=== PATIENT | female | born 1995 | race American Indian/Alaskan Native ===

== ENCOUNTER 2017-05-16 05:52 | Emergency (ER) | payer MEDICAID ==
[2017-05-16 06:45] LABS: Basophils % (Auto) 0.5 % (0.0-1.8); Eosinophils % (Auto) 3.6 % (0.0-4.3); Hematocrit 34.4 % (30.3-42.9); Hemoglobin 11.2 gm/dl (10.1-14.3); Mean Corpuscular HGB Conc 33 % (30-34); Mean Corpuscular Hemoglobin 28 pg (28-32); Mean Corpuscular Volume 85 fl (79-97); Platelet Count 365 K/mm3 (140-440); Red Blood Count 4.06 M/mm3 (3.65-5.03); Red Cell Distribution Width 15.4 % (13.2-15.2); White Blood Count 9.9 K/mm3 (4.5-11.0)
[2017-05-16 06:58] LABS: Alanine Aminotransferase 7 units/L (7-56); Albumin 3.7 g/dL (3.9-5); Albumin/Globulin Ratio 0.9 %; Alkaline Phosphatase 71 units/L (35-129); Anion Gap 17 mmol/L; Bilirubin,Total < 0.20 mg/dL (0.1-1.2); Blood Urea Nitrogen 15 mg/dL (7-17); Calcium 9.4 mg/dL (8.4-10.2); Carbon Dioxide 21 mmol/L (22-30); Chloride 99.9 mmol/L (98-107); Glucose 93 mg/dL (65-100); Lipase 18 units/L (13-60); Potassium 4.3 mmol/L (3.6-5.0); Sodium 134 mmol/L (137-145)
[2017-05-16 07:41] LABS: Bilirubin,Urine NEG (Negative); Blood,Urine NEG (Negative); Ketones,Urine NEG (Negative); Leukocyte Esterase,Urine NEG (Negative); Mucus,Urine FEW /HPF; Nitrite,Urine NEG (Negative); Protein,Urine <15 mg/dL mg/dL (Negative); Urobilinogen,Urine < 2.0 mg/dL (<2.0)
--- NOTE | 2017-05-16 07:52 | Ultrasound Report ---
FINAL REPORT PROCEDURE: US OB \T\gt; = 14 WEEKS FETUS TECHNIQUE: Real-time limited sonographic examination was performed for evaluation of size, position, heartbeat, fluid volume for each fetus with image documentation (1 or more fetuses). CPT 87518 HISTORY: pelvic pressure/cramps COMPARISON: No prior studies are available for comparison. FINDINGS: MATERNAL Uterus: Within normal limits . Cervix length: 3.5 cm. Internal Os: Closed . FETUS IUP: Single living intrauterine . Position: Breech. Placental position: Anterior and left lateral, Without previa . Amniotic fluid volume: Normal . Heart rate and rhythm: 144 BPM, Regular . anatomic survey: Not performed. MEASUREMENTS BPD: 2.8 centimeters corresponding to 15 weeks and 1 day. HC: 11.2 centimeters correspond at 15 weeks and 3 days. AC: 9.1 centimeters correspond at 15 weeks and 2 days. FL: 1.3 centimeters correspond to 14 weeks. Mean Gestational Age (composite criteria): 15 weeks. Ratio biometry: Normal . Estimated Weight: Not calculated Interval growth: No prior study. Estimated Due Date (earliest scan): 11/07/2017. There is an incidental right ovarian cyst measuring 2.3 centimeters. IMPRESSION: 1. Single living intrauterine gestation at approximately 15 weeks. 2. EDC by US 11/07/2017.
--- NOTE | 2017-05-16 13:32 | Emergency Department Report ---
ED Female HPI - General Chief complaint: Abdominal Pain Stated complaint: ABDOMINAL PAIN Time Seen by Provider: 05/16/17 13:16 Source: patient Mode of arrival: Ambulatory Limitations: No Limitations - History of Present Illness Initial comments: 22-year-old female presents to the emergency department complaining of pelvic pressure and bilateral leg numbness. Patient states that she is approximately 14 weeks , . She states for the past 2 weeks she has been having intermittent numbness in both of her legs. She denies weakness. This morning at approximately 5 AM, she began developing pressure in her pelvis. She denies vaginal bleeding or vaginal discharge. There's been no fever, nausea, or vomiting. Patient has not been seen by HEALTH CARE ATTORNEY for this . There are no other complaints. MD Complaint: pelvic pain -: Sudden, This morning Time: 05:00 Location: suprapubic, LLQ, RLQ Radiation: non-radiating Severity: mild Severity scale (0 -10): 3 Quality: other (pressure) Consistency: constant Improves with: none Worsens with: none Are you Now?: Yes Associated Symptoms: denies: vaginal discharge, vaginal bleeding, nausea/ vomiting - Related Data : 1 Para: 0 Allergies Allergy/AdvReac Type Severity Reaction Status Date / Time No Known Allergies Allergy Unverified 05/16/17 05:58 ED Review of Systems ROS: Stated complaint: ABDOMINAL PAIN Other details as noted in HPI Comment: All other systems reviewed and negative Genitourinary: as per HPI (pelvic pain) Neurological: numbness ED Past Medical Hx - Past Medical History Previous Medical History?: No - Surgical History Past Surgical History?: No - Family History Family history: no significant - Social History Smoking Status: Never Smoker Substance Use Type: None ED Physical Exam - General Limitations: No Limitations General appearance: alert, in no apparent distress - Head Head exam: Present: atraumatic, normocephalic - Eye Eye exam: Present: normal appearance, PERRL, EOMI - ENT ENT exam: Present: normal exam, normal orophraynx, mucous membranes moist - Neck Neck exam: Present: normal inspection, full ROM. Absent: tenderness - Respiratory Respiratory exam: Present: normal lung sounds bilaterally. Absent: respiratory distress - Cardiovascular Cardiovascular Exam: Present: regular rate, normal rhythm, normal heart sounds - GI/Abdominal GI/Abdominal exam: Present: soft, tenderness (mild tenderness to palpation left lower quadrant, suprapubic region, and right lower quadrant), normal bowel sounds. Absent: distended, guarding, rebound - Extremities Exam Extremities exam: Present: normal inspection, full ROM. Absent: tenderness - Back Exam Back exam: Present: normal inspection, full ROM. Absent: tenderness - Neurological Exam Neurological exam: Present: alert, oriented X3. Absent: motor sensory deficit - Skin Skin exam: Present: warm, dry, intact ED Course Vital Signs 05/16/17 05/16/17 05/16/17 06:00 12:53 13:00 Temperature 98.4 F Pulse Rate 88 71 Respiratory 18 11 L Rate Blood Pressure 122/80 113/65 O2 Sat by Pulse 100 100 100 Oximetry ED Medical Decision Making - Lab Data Result diagrams: 05/16/17 06:19 05/16/17 06:19 - Radiology Data Radiology results: report reviewed, image reviewed ultrasound reveals a single, live intrauterine with estimated gestational age of 15 weeks, 1 day. heart rate was measured at 144 bpm. The cervical os is closed. - Medical Decision Making Lab and imaging results reviewed and discussed with the patient. Patient will be discharged home at this time to follow up with HEALTH CARE ATTORNEY. - Differential Diagnosis abdominal pain and , UTI, threatened miscarriage Critical care attestation.: If time is entered above; I have spent that time in minutes in the direct care of this critically ill patient, excluding procedure time. ED Disposition Clinical Impression: Abdominal pain affecting Disposition: DC-01 TO HOME OR SELFCARE Is pt being admited?: No Condition: Stable Instructions: Abdominal Pain in (ED) Referrals: ANDRY ELLINGTON MD [Staff Physician] - 3-5 Days Time of Disposition: 13:32
[2017-05-16 13:44] VITALS: BP 114/69
== END 2017-05-16 13:45 | disposition home or self-care (01) ==
LOC: ED 05:52
DX: O26.892 Other specified pregnancy related conditions, second trimester (principal); R10.31 Right lower quadrant pain; R10.32 Left lower quadrant pain; Z3A.15 15 weeks gestation of pregnancy
CPT/HCPCS: 36415; 76805; 80053; 81001; 83690; 84702; 84703; 85025; 86850; 86900; 86901